=== PATIENT | female | born 1965 | race Caucasian/White ===

== ENCOUNTER → 2017-03-02 | Outpatient (CLI) | payer OTHER ==
[~2017-03-02] MED LIST: BIRTH CONTROL PILL
--- NOTE | ~2017-03-02 | MY29 ---
[facility] A Service [facility] RADIOLOGY TEXT RESULTS PATIENT: JOCELIN OWUSU LOCATION: [facility] : 65 UNIT #: [id number] AGE: [address]: DANA KELLEY APRN SEX: F ORDER DR: [id number] [facility]. [place], [place] [address] [id number] O MR#: [id number] Acc #: [id number] NAME: JOCELIN OWUSU : 1965 SEX: F STUDY DATE/TIME: 03/02/2017 14:02 UNIT: [facility] ROOM: STUDY DESCRIPTION: MY JEREMIAS SCREENING W/ CAD BILAT Attending Physician: Dana Kelley Aprn Ordering Physician: Dana Kelley Aprn Primary Care Physician: Denise Fisher A.P.R.N. MEDICAL IMAGING REPORT This report is preliminary unless electronic signature is present EXAM Bilateral digital screening mammogram with CAD DATE 03/02/2017 HISTORY 52-year-old female with no personal or family history of breast cancer or current complaints. COMPARISON Bilateral screening mammogram 01/30/2016 and 05/02/2014. FINDINGS CC and MLO views were obtained of each breast utilizing digital technique and reviewed with an FDA-approved CAD device. Scattered fibroglandular densities are present bilaterally. Benign calcification is seen within the upper outer left breast, unchanged. No new or suspicious clustered microcalcifications. No architectural distortion. IMPRESSION 1. BIRADS 2. Benign findings. Routine bilateral screening mammogram is recommended in 1 year. Patients over the age of 40 are entered into a reminder system with target due date for the next mammogram. A result letter will also be sent to the patient. BIRADS: 2, benign findings [facility] A Service [facility] RADIOLOGY TEXT RESULTS PATIENT: JOCELIN OWUSU LOCATION: [facility] : 65 UNIT #: [id number] AGE: [address]: DANA KELLEY APRN SEX: F ORDER DR: Dictated by... Madyson Cuevas M.D. THIS IS AN ELECTRONICALLY VERIFIED REPORT Madyson Cuevas M.D. at 03/05/2017 8:34 AM [email or web address] TD: 03/03/2017 05:22 JOB #: [id number] MEDICAL IMAGING REPORT Page 1 of 1 COPY
== END | disposition home or self-care (01) ==
LOC: CWCC 02-26 12:00
DX: Z12.31 Encounter for screening mammogram for malignant neoplasm of breast (principal)
CPT/HCPCS: G0202